=== PATIENT | female | born 1985 | race African-American/Black ===

== ENCOUNTER 2017-04-14 19:32 | Emergency (ER) | payer MEDICAID ==
[~2017-04-14] VITALS: Ht 162.6 cm; Wt 62.7 kg
[~2017-04-14 19:32] MED LIST: PRENATAL1 TA1 PO
[2017-04-14 19:38] VITALS: BP 121/70; PULSE 74; TEMP 98.6
[2017-04-14] MEDS ORDERED: PREDNISONE20 MG PO (20:08)
== END 2017-04-14 20:27 | disposition home or self-care (01) ==
LOC: COL.ER 19:32
DX: T78.40XA Allergy, unspecified, initial encounter (principal); R21 Rash and other nonspecific skin eruption
CPT/HCPCS: J7512